=== PATIENT | female | born 1980 | race Two or more races ===

== ENCOUNTER 2019-12-28 12:13 | Emergency (ER) | payer OTHER ==
[~2019-12-28] VITALS: Ht 154.9 cm; Wt 72.6 kg
--- NOTE | 2019-12-28 12:45 | NUR ---
ED Nurse Note: Pt walked in from home c/o left thumb pain. Pt was sewing when the needle broke and got stuck in her finger aroun 1130. Pt says needle "broke." Respirations even and unlabored on room air. Vitals stable as documented. A+Ox4, speaking in complete sentences.
[2019-12-28 13:00] VITALS: BP 128/76
[2019-12-28] MEDS ORDERED: Bacitracin Oint UD TOPIC ONE (13:00)
[2019-12-28 15:00] VITALS: BP 136/79
--- NOTE | 2019-12-28 15:36 | Consultation ---
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 surgery called to evaluate and assist with care. patient seen, chart reviewed, patient examined in ED. no n/v/f/c. plain films reviewed. exam with broken fingernail from trauma, 1mm opening with bleeding insertion site noted. no exit. pain 07/19. Allergies: Coded Allergies: No Known Allergies (Unverified , 12/28/19) COVID-19 Screening Contact w/high risk pt: No Experienced COVID-19 symptoms?: No Medication History Scheduled Acetaminophen* (Tylenol Extra Strength*), 500 MG ORAL Q6H Bacitracin (Bacitracin), 1 APPLIC TOPIC THREE TIMES A DAY Cephalexin* (Keflex*), 500 MG ORAL TID Patient History History Provided By: Patient, Medical Record, PMD Healthcare decision maker Resuscitation status Advanced Directive on File Review of Systems Review of Symptoms General ROS: no weight loss or fever Psychological ROS: no depression or mood changes, no memory loss Ophthalmic ROS: no visual changes or eye irritation ENT ROS: no nasal congestion, hearing loss, dizziness Allergy and Immunology ROS: no allergic symptoms or urticaria Hematological and Lymphatic ROS: no swollen glands, unusual bleeding or bruising Endocrine ROS: no polyuria, polydipsia, weight changes, temperature intolerance Respiratory ROS: no cough, shortness of breath, or wheezing Cardiovascular ROS: no chest pain or dyspnea on exertion Gastrointestinal ROS: denies abdominal pain, bright red blood in stool. Musculoskeletal ROS: no myalgias or arthralgias Neurological ROS: no TIA or stroke symptoms Dermatological ROS: no new or changing skin lesions, rashes or pruritis Physical Exam Physical Exam General appearance: alert, cooperative, no distress, appears stated age Head: Normocephalic, without obvious abnormality, atraumatic Eyes: conjunctivae/corneas clear. PERRL, EOM's intact. Fundi benign Throat: Lips, mucosa, and tongue normal. Teeth and gums normal Neck: supple, symmetrical, trachea midline, no adenopathy, thyroid: not enlarged, symmetric, no tenderness/mass/nodules, no carotid bruit and no JVD Lungs: clear to auscultation bilaterally Heart: regular rate and rhythm, S1, S2 normal, no murmur, click, rub or gallop Abdomen: soft, non-tender. Bowel sounds normal. No masses, no organomegaly Extremities: extremities see below Pulses: 2+ and symmetric Skin: Skin color, texture, turgor normal. No rashes or lesions Neurologic: Grossly normal Last 24 Hour Vital Signs Date Time Temp Pulse Resp B/P (MAP) Pulse Ox O2 Delivery O2 Flow Rate FiO2 12/28/19 15:00 98.1 89 20 136/79 99 Room Air 12/28/19 13:00 98.3 77 20 128/76 98 Room Air 12/28/19 12:31 98.8 84 20 131/72 (91) 97 Room Air Height (Feet): 5 Height (Inches): 1.00 Weight (Pounds): 160 Assessment/Plan Problem List: (1) Closed fracture of tuft of distal phalanx of finger ICD Codes: S62.639A - Displaced fracture of distal phalanx of unspecified finger, initial encounter for closed fracture SNOMED: 176819503, [id number] (2) Retained foreign body after penetrating wound SNOMED: [id number], [id number] Assessment/Plan: patient seen and examined in ED wound evaluated plain films reviewed given injury, location, foreign body, fracture, recommend transfer to higher level of care with hand surgery availability. thank you Patient did not remove rings on the third and fourth digit. There is a metallic radiodensity in the soft tissues of the tip of the first digit representing a retained foreign body. Correlation with history and physical exam recommended. There is a irregularity of the tuft of the first distal phalanx suggesting a small associated chip fracture. No additional acute fracture identified. Chan Treviño Dec 28, 2019 15:36
--- NOTE | 2019-12-28 15:50 | Emergency Room Report ---
History of Present Illness General Chief Complaint: Foreign Body Source: Patient, Medical Record, PMD Present Illness HPI 39 YO female who is right hand dominant presents to the ED c/o 07/19 in severity pain and tenderness with a retained broken piece of a needle in the Left thumb x 1 day. 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 Pt. reports last Tdap was 7 years ago. Pt. denies bleeding at this time. She denies taking thinning medications. She denies loss of gross motor movements of the affected digit and she denies paresthesias. No other aggravating or relieving factors at this time. Allergies: Coded Allergies: No Known Allergies (Unverified , 12/28/19) COVID-19 Screening Contact w/high risk pt: No Experienced COVID-19 symptoms?: No COVID-19 Testing performed BRANCH SERVICE ASSOCIATE: No Patient History Past Medical History: see triage record Past Surgical History: none Pertinent Family History: none Now: No Immunizations: UTD Reviewed Nursing Documentation: PMH: Agreed; PSxH: Agreed Nursing Documentation-PMH Past Medical History: No Stated History Review of Systems All Other Systems: negative except mentioned in HPI Physical Exam Vital Signs Date Time Temp Pulse Resp B/P (MAP) Pulse Ox O2 Delivery O2 Flow Rate FiO2 12/28/19 12:31 98.8 84 20 131/72 (91) 97 Room Air Sp02 EP Interpretation: reviewed, normal General Appearance: no apparent distress, alert, GCS 15, non-toxic Head: normocephalic, atraumatic Eyes: bilateral eye normal inspection, bilateral eye PERRL ENT: hearing grossly normal, normal voice Neck: full range of motion Respiratory: lungs clear, normal breath sounds, speaking full sentences Cardiovascular #1: regular rate, rhythm, normal capillary refill Cardiovascular #2: 2+ radial (R), 2+ radial (L) Musculoskeletal: back normal, normal range of motion, gait/station normal, tender - distal left thumb, other - puncture wound to the distal left thumb Neurologic: alert, motor strength/tone normal, oriented x3, sensory intact, responsive, speech normal Psychiatric: judgement/insight normal Skin: other - Puncture wound under lucy nailbed of the left first digit. No bleeding at this time. Lymphatic: no adenopathy Medical Decision Making PA Attestation Dr. Chavez is my supervising Physician whom patient management has been discussed with. Diagnostic Impression: Primary Impression: Closed fracture of tuft of distal phalanx of finger Additional Impression: Retained foreign body after penetrating wound ER Course 39 YO female who is right hand dominant presents to the ED c/o 07/19 in severity pain and tenderness with a retained broken piece of a needle in the Left thumb x 1 day. 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 Pt. reports last Tdap was 7 years ago. Pt. denies bleeding at this time. She denies taking thinning medications. She denies loss of gross motor movements of the affected digit and she denies paresthesias. No other aggravating or relieving factors at this time. Ddx considered but are not limited to retained fracture, ST FB. splinter, cellulitis Vital signs: are WNL, pt. is afebrile H&PE are most consistent with possible retained FB in the soft tissue of the Left Thumb -No infection noted at this time ORDERS: -X -Ray :Left Hand 3 views:--Preliminary ED read demonstrates retained foreign body with distal tuft fracture of the first phalanx ED INTERVENTIONS: -Pt. declines pain medication at this time. --Preop lab work: WNL - 1g Ancef IV - Dr. Faraz Cuello ( Hand Plastics) was consulted and came to remove the retained FB. - Finger Splint applied to the Left Thumb by dairy manufacturing technologist. Pt. remains neurovascularly intact. DISCHARGE: At this time pt. is stable for d/c to home. Will provide printed patient care instructions, and any necessary prescriptions. Care plan and follow up instructions have been discussed with the patient prior to discharge. Other X-Ray Diagnostic Results Other X-Ray Diagnostic Results : X-Ray ordered: Left Hand # of Views/Limited Vs Complete: 3 View Indication: Pain EP Interpretation: Yes TITO Xray: Interpretation reviewed, by supervising MD, and agrees with findings. Interpretation: no dislocation, no soft tissue swelling, other - distal tuft fracture of the left thumb with retained foreign body. Impression: Other - abnormal Electronically Signed by: Gricelda Mcgraw PA-C Last Vital Signs Date Time Temp Pulse Resp B/P (MAP) Pulse Ox O2 Delivery O2 Flow Rate FiO2 12/28/19 15:00 98.1 89 20 136/79 99 Room Air Status: improved Disposition: HOME, SELF-CARE Condition: Stable Physician Consult: Dr. Faraz Cuello ( Hand/Plastics) Scripts Bacitracin (Bacitracin) 28.4 Gm Oint...g. 1 APPLIC TOPIC THREE TIMES A DAY, #28.3 GM Prov: Gricelda Mcgraw 12/28/19 Acetaminophen* (TYLENOL EXTRA STRENGTH*) 500 Mg Tablet 500 MG ORAL Q6H, #30 TAB 0 Refills Prov: Gricelda Mcgraw 12/28/19 Cephalexin* (KEFLEX*) 500 Mg Capsule 500 MG ORAL TID, #21 CAP 0 Refills Prov: Gricelda Mcgraw 12/28/19 Referrals: NOT CHOSEN IPA/MD,REFERRING (PCP) Faraz Cuello MD Departure Forms: Return to Work Return to Work Date: Dec 31, 2019 Other Restrictions: limited use of left thumb. May return Sooner if Symptoms have resolved. Return to Full Activity: Jan 04, 2020 Work Restrictions: No Heavy Lifting Patient Instructions: Sliver Removal, Care After Additional Instructions: Take medications as directed. Follow up with a Dr. FARAZ CUELLO ( PLASTIC SURGEON ) in 3-5 days, even if your symptoms have resolved. --Please review his attached office address and telephone information. Return sooner to ED if new symptoms occur, or current symptoms become worse. - Please note that this Emergency Department Report was dictated using [employer] assembler technology software, occasionally this can lead to erroneous entry secondary to interpretation by the dictation equipment. Gricelda Mcgraw Dec 28, 2019 15:50
[2019-12-28] MEDS ORDERED: ceFAZolin sod 1 GM in NS 55 ML IVPB ONE (16:00)
--- NOTE | 2019-12-28 16:31 | Diagnostic Imaging Report ---
Indication: Pain Technique: 3 views of left hand Comparison: None FINDINGS/IMPRESSION: Patient did not remove rings on the third and fourth digit. There is a metallic radiodensity in the soft tissues of the tip of the first digit representing a retained foreign body. Correlation with history and physical exam recommended. There is a irregularity of the tuft of the first distal phalanx suggesting a small associated chip fracture. No additional acute fracture identified.
[2019-12-28 17:00] VITALS: BP 127/74
[2019-12-28 17:21] LABS: ANION GAP 12 mmol/L (5-15); BLOOD UREA NITROGEN 11 mg/dL (7-18); CALCIUM 8.9 MG/DL (8.5-10.1); CARBON DIOXIDE 21 MMOL/L (21-32); CHLORIDE 104 MMOL/L (98-107); CREATININE 0.8 MG/DL (0.55-1.30); POTASSIUM 3.7 MMOL/L (3.5-5.1); SODIUM 137 MMOL/L (136-145)
[2019-12-28 17:24] LABS: BASOPHILS % (AUTO) 0.8 % (0.0-2.0); EOSINOPHILS % (AUTO) 0.5 % (0.0-3.0); HEMATOCRIT 41.4 % (37.0-47.0); HEMOGLOBIN 14.1 G/DL (12.0-16.0); LYMPHOCYTES % (AUTO) 29.6 % (20.0-45.0); MEAN CORPUSCULAR VOLUME 88 FL (80-99); NEUTROPHILS % (AUTO) 65.1 % (45.0-75.0); PLATELET COUNT 320 K/UL (150-450); RED CELL DISTRIBUTION WIDTH 13.1 % (11.6-14.8); WHITE BLOOD COUNT 11.6 K/UL (4.8-10.8)
[2019-12-28 17:25] LABS: ALANINE AMINOTRANSFERASE 45 U/L (12-78); ALBUMIN 4.1 G/DL (3.4-5.0); ALBUMIN/GLOBULIN RATIO 0.9 (1.0-2.7); ALKALINE PHOSPHATASE 155 U/L (46-116); ASPARTATE AMINO TRANSFERASE 26 U/L (15-37); BILIRUBIN,TOTAL 0.4 MG/DL (0.2-1.0)
[2019-12-28 17:29] LABS: INR 0.9 (0.9-1.1)
[2019-12-28] MEDS ORDERED: Lidocaine 2% 20mg/ml/EPI 0.01mg/ml 20ml INJ ONE (18:00)
--- NOTE | 2019-12-28 19:10 | NUR ---
ED Nurse Note: Surgeon @ bedside
--- NOTE | 2019-12-28 19:11 | NUR ---
HAND-OFF: Report given to HIPOLITO Tamez. Pt in stable condition; plan of care endorsed.
--- NOTE | 2019-12-28 19:20 | NUR ---
ED Nurse Note: Recieved report from am nurse to resume care, pt is in room with hand surgeon at bedside removing foreign body from pt finger, pt is awake and alert, has patent IV site in left ac area, will resume care as ordered and prepare for disposition.
[2019-12-28] MEDS ORDERED: BACITRACIN15 GM TOPIC (19:47)
[2019-12-28] MEDS ORDERED: TYLENOL EXTRA500 MG ORAL (19:47)
[2019-12-28] MEDS ORDERED: CEPHALEXIN500 MG ORAL (19:47)
[2019-12-28 19:50] VITALS: BP 129/64
[2019-12-28 20:05] VITALS: BP 127/74
--- NOTE | 2019-12-28 20:05 | NUR ---
ER DISCHARGE NOTE: Patient is cleared to be discharged per ERMD, pt is aox4, on room air, with stable vital signs. pt was given dc and prescription instructions, pt was able to verbalize understanding, pt id band and iv site removed without complications. pt is able to ambulate with steady gait. pt took all belongings.
== END 2019-12-28 20:05 | disposition home or self-care (01) ==
LOC: EMR 13:06
DX: S62.522A Displaced fracture of distal phalanx of left thumb, initial encounter for closed fracture (principal); W22.8XXA Striking against or struck by other objects, initial encounter; Y93.89 Activity, other specified; Y92.9 Unspecified place or not applicable; W45.8XXA Other foreign body or object entering through skin, initial encounter
CPT/HCPCS: 36415; 73130; 80053; 85025; 85610; 85730; 86850; 86900; 86901; 96365; 99284; J0690